=== PATIENT | male | born 1990 | race Two or more races ===

== ENCOUNTER 2020-03-22 08:15 | Inpatient (IN) | payer OTHER ==
[~2020-03-22] VITALS: Ht 172.7 cm; Wt 79.4 kg
== END 2020-04-01 17:53 | disposition home or self-care (01) | DRG 331 ==
LOC: O/R 03-29 07:25 → PED 03-29 07:25 → SURH 03-29 08:15 → PED 03-29 16:25
PROVIDERS: ADMIT Colon & Rectal Surgery; ATTEND Colon & Rectal Surgery
PROC: 0DJD8ZZ Inspection of Lower Intestinal Tract, Via Natural or Artificial Opening Endoscopic (ICD-10-PCS; 2020-03-29)
PROC: 3E0F7GC Introduction of Other Therapeutic Substance into Respiratory Tract, Via Natural or Artificial Opening (ICD-10-PCS; 2020-03-29)
PROC: 0DTN4ZZ Resection of Sigmoid Colon, Percutaneous Endoscopic Approach (ICD-10-PCS; principal; 2020-03-29 10:00)
DX: K57.20 Diverticulitis of large intestine with perforation and abscess without bleeding (principal); Z20.828 Contact with and (suspected) exposure to other viral communicable diseases; J45.20 Mild intermittent asthma, uncomplicated; F17.200 Nicotine dependence, unspecified, uncomplicated

== ENCOUNTER 2023-06-12 23:59 | Emergency (ER) | payer OTHER ==
[~2023-06-12] VITALS: Ht 172.7 cm; Wt 73.9 kg
[2023-06-13] MEDS ORDERED: KETOROLAC TROMETHAMINE 10 MG TABLET PO STA (01:29)
[2023-06-13] MEDS ORDERED: KETO10TA2 PO (02:45)
== END 2023-06-13 03:37 ==
LOC: ER 06-13
DX: S52.121A Displaced fracture of head of right radius, initial encounter for closed fracture (principal); S60.211A Contusion of right wrist, initial encounter; V29.91XA Electric (assisted) bicycle rider (driver) (passenger) injured in unspecified traffic accident, initial encounter; Y93.89 Activity, other specified; Y92.89 Other specified places as the place of occurrence of the external cause; Y99.9 Unspecified external cause status; Z88.8 Allergy status to other drugs, medicaments and biological substances

== ENCOUNTER 2023-06-26 08:41 | Outpatient (CLI) | payer OTHER ==
[~2023-06-26 08:41] MED LIST: KETO10TA2 PO
== END 2023-06-26 08:52 | disposition home or self-care (01) ==
LOC: RAD 08:41
PROVIDERS: ATTEND Orthopaedic Surgery
DX: S52.124A Nondisplaced fracture of head of right radius, initial encounter for closed fracture (principal)

== ENCOUNTER 2023-07-03 10:19 | Outpatient (CLI) | payer OTHER | END 2023-07-03 10:35 | disposition home or self-care (01) | LOC: TOM 10:19 | PROVIDERS: ATTEND Orthopaedic Surgery | DX: M25.531 Pain in right wrist (principal); S60.211A Contusion of right wrist, initial encounter ==